=== PATIENT | male | born 1950 | race Caucasian/White ===

== ENCOUNTER 2017-10-18 09:46 | Emergency (ER) | payer OTHER, BC ==
--- NOTE | 2017-10-18 10:07 | PDOC ---
History of Present Illness - General Chief Complaint: Toothache Stated Complaint: DENTAL ABSCESS WITH SWELLING Time Seen by Provider: 10/18/17 09:49 - History of Present Illness Initial Comments: 10/18/17 10:12 67-year-old male with no past medical history here today complaining of right dental abscess. Patient states he was started on Augmentin 2 days ago by his dentist told that he would needed to to extraction. Then was sent to an urgent care where he was seen and subsequent sent to the emergency room. Patient describes pain and swelling in the right jaw area feels like it is extending towards a central area near his throat he does have pain with opening his mouth no fever no chills has had some drainage inside the mouth no recent procedures no diabetes no cough or other problems breathing. Past History - Past Medical History Allergies/Adverse Reactions: Allergies Allergy/AdvReac Type Severity Reaction Status Date / Time cephalexin Allergy Intermediate Hives Verified 10/18/17 09:51 Home Medications: Ambulatory Orders Amoxicillin/Potassium Clav [Augmentin 500-125 Tablet] 1 each PO BID 10/18/17 Ibuprofen 800 mg PO TID PRN 10/18/17 COPD: No - Suicide/Smoking/Psychosocial Hx Smoking History: Former smoker Have you smoked in the past 12 months: No If you are a former smoker, when did you quit?: 20 YEARS AGO Information on smoking cessation initiated: No Hx Alcohol Use: No Drug/Substance Use Hx: No Substance Use Type: None Review of Systems - Review of Systems Constitutional: No: Diaphoresis, Fever HEENTM: Yes: Throat Pain, Mouth Pain, Dental Problems, Difficulty Swallowing, Mouth Swelling Respiratory: No: Cough Cardiac (ROS): No: Chest Pain, Edema ABD/GI: No: Blood Streaked Bowels : No: Burning, Dysuria Integumentary: No: Bruising Neurological: No: Headache All Other Systems: Reviewed and Negative *Physical Exam - Vital Signs Last Vital Signs Temp Pulse Resp BP Pulse Ox 98.0 F 90 16 176/94 97 10/18/17 09:48 10/18/17 09:48 10/18/17 09:48 10/18/17 09:48 10/18/17 09:48 - Physical Exam General Appearance: Yes: Appropriately Dressed HEENT: positive: Normal Voice, Other (Right submandibular swelling palpable mass extending to the midline with fullness mild erythema oral exam demonstrates right buccal swelling tenderness fullness and some purulent drainage dental decay and caries noted along the molar) Neck: positive: Trachea midline Respiratory/Chest: positive: Lungs Clear, Normal Breath Sounds Cardiovascular: positive: Regular Rhythm, Regular Rate, S1, S2. negative: Edema Gastrointestinal/Abdominal: positive: Normal Bowel Sounds, Flat, Soft Musculoskeletal: positive: Normal Inspection. negative: CVA Tenderness ED Treatment Course - LABORATORY CBC & Chemistry Diagram: 10/18/17 10:05 10/18/17 10:05 Medical Decision Making - Medical Decision Making 10/18/17 10:09 67-year-old male with no past medical history here today complaining of right dental abscess. Patient states he was started on Augmentin 2 days ago by his dentist told that he would needed to to extraction. Then was sent to an urgent care where he was seen and subsequent sent to the emergency room. Patient describes pain and swelling in the right jaw area feels like it is extending towards a central area near his throat he does have pain with opening his mouth no fever no chills has had some drainage inside the mouth no recent procedures no diabetes no cough or other problems breathing. On exam he has right submandibular swelling palpable mass and fullness there is some your femur extending to the midline in the submandibular dental decay over the molars is noted with prior fillings no trismus no stridor uvulas midline cardiac exam is normal lungs are normal abdomen is soft nontender extremities are warm well perfused and skin is warm with no rash Patient with dental abscess concern for possible extension into the anterior submandible area concerning for predisposing to Gary's. Will discuss with ENT or consider patient for possible transfer for dental definitive management we will obtain labs with cultures and administer IV antibiotics starting with clindamycin and Decadron to help with the inflammation will obtain CT with contrast to evaluate the extent of the abscess 10/18/17 11:12 Patient's WBC count was 20 given an IV dose of clindamycin 900 mg and Decadron [address] soft tissue of the neck is pending discussed with Dr. sierra at [facility] R for dental surgery who accepted the patient for transfer and drainage also discussed with [facility] ed attending Dr. Lowe . We'll transfer patient for definitive care *DC/Admit/Observation/Transfer Diagnosis at time of Disposition: Dental abscess - Discharge Dispostion Disposition: TRANSFER ACUTE CARE/OTHER HOSP Condition at time of disposition: Good - Referrals Referrals: Zain Shaw MD [Primary Care Provider] - Kelton Reed MD [Staff Physician] - - Patient Instructions - Post Discharge Activity
[2017-10-18] MEDS ORDERED: DEXAMETHASONE SOD PHOSPHATE 10 MG/1 ML VIAL IVPUSH ONE (10:13)
[2017-10-18] MEDS ORDERED: CLINDAMYCIN 900 MG PREMIX IVPB 900 MG/50 ML BAG IVPB ONE (10:13)
[2017-10-18 10:20] VITALS: TEMP 98; BMI 34.8
[2017-10-18] MEDS ORDERED: CLINDAMYCIN PHOSPHATE 300 MG/2 ML VIAL ONE (10:21)
[2017-10-18] MEDS ORDERED: DEXAMETHASONE SOD PHOSPHATE 10 MG/1 ML VIAL ONE (10:21)
[2017-10-18] MEDS ORDERED: CLINDAMYCIN PHOSPHATE 600 MG/4 ML VIAL ONE (10:22)
[2017-10-18 10:26] LABS: MCH 31.4 pg (25.7-33.7); MCHC 34.2 g/dl (32.0-35.9); MEAN CELL VOLUME 91.8 fl (80-96); MEAN PLT VOLUME 9.4 fl (7.5-11.1); PLATELET COUNT 234 K/MM3 (134-434); RDW 12.5 % (11.9-15.9)
[2017-10-18 10:42] LABS: ALK PHOS 84 U/L (32-92); ANION GAP 9 (8-16); BILIRUBIN,TOTAL 1.1 mg/dl (0.2-1.0); CALCIUM 9.4 mg/dl (8.4-10.2); CO2 25 mmol/L (22-28); CREATININE 1.2 mg/dl (0.6-1.3); GLUCOSE,RANDOM 102 mg/dl (74-106); SGOT/AST 25 U/L (10-42); SGPT/ALT 18 U/L (10-40); TOT PROT 7.3 g/dl (6.4-8.3)
[2017-10-18 11:47] VITALS: PULSE 92
[2017-10-18 11:58] VITALS: BP 146/84
== END 2017-10-18 11:53 | disposition short-term general hospital (02) ==
LOC: FER 09:46
PROC: 3E03329 Introduction of Other Anti-infective into Peripheral Vein, Percutaneous Approach (ICD-10-PCS; principal; 2017-10-18)
PROC: 3E033GC Introduction of Other Therapeutic Substance into Peripheral Vein, Percutaneous Approach (ICD-10-PCS; 2017-10-18)
DX: K04.7 Periapical abscess without sinus (principal); Z87.891 Personal history of nicotine dependence
CPT/HCPCS: 36415; 70491-TC; 80053; 85025; 87040; 99285-25

== ENCOUNTER 2019-01-16 09:52 | Observation (INO) | payer OTHER, BC ==
--- NOTE | 2019-01-16 09:55 | PDOC ---
History of Present Illness - General Chief Complaint: Chest Pain Stated Complaint: CHEST PAIN Time Seen by Provider: 01/16/19 09:55 History Source: Patient Exam Limitations: No Limitations - History of Present Illness Initial Comments: 01/16/19 10:13 HPI 68 YOM with h/o chronic sinusitis with no significant medical history presenting with substernal chest pressure/discomfort, with radiation down left arm that woke him up from sleep at 3AM today. He states he was in usual state of health, ate pineapple chicken and rice last night before going to bed. This morning, he started experiencing constant substernal and epigastric chest discomfort, also described as gas pains, and progressed to left arm numbness/ tingling. No alleviating or exacerbating factors. 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 He also took simethicone, without relief. Family history notable for MGF with MN/CAD in early 50s. Denies fever, chills, cough, congestion, palpitations, SOB, headache, dizziness , weakness, N, V, D, abdominal pain, bladder and bowel problems, leg swelling, No sick contacts or travel. No new changes in medications. admits to poor diet, and his dogs eat better than he does. Allergies: Keflex. Past Medical History: chronic sinusitis Social history: Lives with family. Former smoker, No smoking. Occasional alcohol. No illicit drugs. Surgical history: none PMD: Fader ROS Constitutional: no fevers or chills. No weakness HEENT: no headache or dizziness. No congestion. No visual/hearing disturbances. CVS: no syncope. +chest pain, no palpitations Resp: no sob. No cough. Gastrointestinal: no, nausea or vomiting, diarrhea. +abdominal pain. +gas pain. Genitourinary: no urinary sx, hematuria. MUSCULOSKELETAL: No joint pain and swelling. No neck or back pain. SKIN: no redness or skin changes, no discharge, no rash. No wounds. Hematologic: no easy bruising/bleeding. NEUROLOGIC: No headache, dizziness, LOC or altered mental status. No weakness, + numbness and tingling in arm Allergic/Immunologic: no allergies All other systems reviewed and negative, or as documented in HPI. PE: General: awake and alert, NAD. HEENT: NCAT, PERRL, EOMI, clear conjunctiva, anicteric, moist mucus membranes, clear oropharynx, no oral lesions.. Neck: neck supple, FROM Resp: CTAB, normal and even respirations, no respiratory distress CVS: RRR, no murmurs, 2+ peripheral pulses throughout, no peripheral edema Chest: no reproducible chest wall tenderness Abdomen: soft, NTND, no peritoneal signs. Back: nontender, normal inspection and ROM MSK: no edema, OLIVEIRA x4, ROM intact. No clubbing or cyanosis. normal bulk and tone. Extremities: no calf tenderness Neuro: alert, oriented appropriately; no focal neurologic deficits Skin: warm and well perfused, cap refill <2 sec, normal color 01/16/19 10:22 01/16/19 10:22 01/16/19 10:23 Past History - Past Medical History Allergies/Adverse Reactions: Allergies Allergy/AdvReac Type Severity Reaction Status Date / Time cephalexin Allergy Intermediate Hives Verified 01/16/19 09:53 Home Medications: Ambulatory Orders Aspirin Coated [Ecotrin -] 650 mg PO ONCE 01/16/19 COPD: No - Suicide/Smoking/Psychosocial Hx Smoking History: Never smoked Have you smoked in the past 12 months: No If you are a former smoker, when did you quit?: 20 YEARS AGO Information on smoking cessation initiated: No Hx Alcohol Use: (occasional) Drug/Substance Use Hx: No Substance Use Type: None *Physical Exam - Vital Signs Last Vital Signs Temp Pulse Resp BP Pulse Ox 97.5 F L 64 16 144/82 99 01/16/19 09:52 01/16/19 11:00 01/16/19 11:00 01/16/19 11:00 01/16/19 11:00 Heart Score/ECG Review - History History: Moderately suspicious - Electrocardiogram EKG: Non specific repolarization disturbance - Age Age: >/= 65 - Risk Factors Risk Factors Heart Score: Yes Hx Obesity Based on the list above the patient has:: 1-2 risk factors - Troponin Troponin: </= normal limit - Score Heart Score - Total: 5 #1 ECG reviewed & interpreted by me at: 09:55 General ECG Interpretation: Sinus Rhythm Compared to previous ECG there are: Previous ECG unavail 01/16/19 10:16 EKG normal sinus rhythm at 90 bpm, no interval abnormalities, narrow QRS, ST and T wave segments and morphology normal. Nonspecific T wave abnormalities - TWI in III only. no priors. Moderate Sedation - Procedure Monitoring Vital Signs: Procedure Monitoring Vital Signs Temperature 97.5 F L 01/16/19 09:52 Pulse Rate 64 01/16/19 11:00 Respiratory Rate 16 01/16/19 11:00 Blood Pressure 144/82 01/16/19 11:00 O2 Sat by Pulse Oximetry (%) 99 01/16/19 11:00 ED Treatment Course - LABORATORY CBC & Chemistry Diagram: 01/16/19 10:14 01/16/19 10:14 - ADDITIONAL ORDERS Additional order review: Laboratory Results 01/16/19 01/16/19 10:14 10:14 Sodium 136 Potassium 4.2 Chloride 103 Carbon Dioxide 25 Anion Gap 8 BUN 18 Creatinine 1.2 Creat Clearance w eGFR 60.39 Random Glucose 113 H Calcium 9.1 Magnesium 1.8 Total Bilirubin 0.5 AST 23 ALT 24 Alkaline Phosphatase 109 Troponin I < 0.03 Total Protein 6.9 Albumin 3.8 01/16/19 10:14 RBC 5.02 MCV 92.1 MCHC 32.6 RDW 11.9 MPV 8.7 D Neutrophils % 63.3 Lymphocytes % 22.8 Monocytes % 6.6 Eosinophils % 6.6 H D Basophils % 0.7 - RADIOLOGY Radiology Studies Ordered: Category Date Time Status CHEST PA & LAT [RAD] Stat Radiology 01/16/19 09:55 Completed Medical Decision Making - Medical Decision Making 01/16/19 09:56 See HPI for details Vital signs reviewed, mildly hypertensive DDx includes ACS, angina, chest pain NOS, costochondritis, GERD, pleurisy, anxiety, esophageal spasm. Low suspicion for pulmonary embolism or dissection. Prior notes reviewed, including admissions, discharges and consultations. - prior echo in 2018 with LVH, normal EF noted; otherwise unremarkable. laboratory results and imaging reviewed, basic labs and lytes wnl, CXR_no acute chest pathology Cardiac panel_neg trop x1, serial trop/EKG EKG normal sinus rhythm at 90 bpm, no interval abnormalities, narrow QRS, ST and T wave segments and morphology normal. Nonspecific T wave abnormalities - TWI in III only. no priors. ED course -HEART score 5 which denotes mod risk and probability for ACS, less than 14-16% risk for MACE at 30 days. Given risk factors including obesity, gender, family (MGF) and former tobacco use. - htn noted, downtrending, clinical recheck. - ACS workup, pt with currently mild midsternal chest "burning" sensation. will trial GI cocktail as well, no significant cp. however, still with paresthesias from LUE, without neck pain elicited. Plan for admit observation telemetry, r/o ACS vs stable /unstable angina, serial trops and EKG/tele monitoring. 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 s/o [place], with admission, to hospitalist service. 01/16/19 11:49 01/16/19 11:51 *DC/Admit/Observation/Transfer Diagnosis at time of Disposition: Chest pain - Discharge Dispostion Condition at time of disposition: Stable Decision to Admit order: Yes Decision to Admit order Date/Time: Decision to Admit Order Category Date Time Status Decision to Admit to Hospital Routine Admission 01/16/19 11:46 Ordered - Referrals Referrals: Zain Shaw MD [Primary Care Provider] - - Patient Instructions - Post Discharge Activity
[2019-01-16 10:26] LABS: BASO % 0.7 % (0-2.0); EOS % 6.6 % (0-4.5); HEMATOCRIT 46.3 % (35.4-49); HEMOGLOBIN 15.1 GM/dl (11.7-16.9); LYMPH % 22.8 % (8-40); MCHC 32.6 g/dl (32.0-35.9); MEAN CELL VOLUME 92.1 fl (80-96); MEAN PLT VOLUME 8.7 fl (7.5-11.1); MONO % 6.6 % (3.8-10.2); NEUT % 63.3 % (42.8-82.8); PLATELET COUNT 245 K/MM3 (134-434); RBC 5.02 M/mm3 (4.00-5.60); RDW 11.9 % (11.9-15.9); WHITE BLOOD COUNT 12.6 K/mm3 (4.0-10.8)
[2019-01-16 10:39] LABS: ALBUMIN 3.8 g/dl (3.4-5.0); ALK PHOS 109 U/L (45-117); ANION GAP 8 MMOL/L (8-16); BILIRUBIN,TOTAL 0.5 mg/dl (0.2-1); BLOOD UREA NITROGEN 18 mg/dl (7-18); CALCIUM 9.1 mg/dl (8.5-10); CHLORIDE 103 mmol/L (98-107); CO2 25 mmol/L (21-32); CREATININE 1.2 mg/dl (0.55-1.3); GLUCOSE,RANDOM 113 mg/dl (74-106); MAGNESIUM 1.8 mg/dL (1.8-2.4); POTASSIUM 4.2 mmol/L (3.5-5.1); SGOT/AST 23 U/L (15-37); SGPT/ALT 24 U/L (13-61); SODIUM 136 mmol/L (136-145); TOT PROT 6.9 g/dl (6.4-8.2)
--- NOTE | 2019-01-16 10:59 | EKG ---
Test Reason : Blood Pressure : / mmHG Vent. Rate : 090 BPM Atrial Rate : 090 BPM P-R Int : 216 ms QRS Dur : 086 ms QT Int : 354 ms P-R-T Axes : 058 -13 010 degrees QTc Int : 433 ms SINUS RHYTHM WITH 1ST DEGREE A-V BLOCK INFERIOR INFARCT , AGE UNDETERMINED ABNORMAL ECG NO PREVIOUS ECGS AVAILABLE Confirmed by MD JESSI, AMANDA ([id number]) on 01/16/2019 10:58:39 AM Referred By: SUSAN Confirmed By:AMANDA BOWEN MD
[2019-01-16] MEDS ORDERED: FAMOTIDINE 20 MG/50 ML IVPB 20 MG/50 ML MG IVPB ONE ×2 (11:52→11:55)
[2019-01-16] MEDS ORDERED: MAG HYDROX/AL HYDROX/SIMETH 30 ML UNIT-DOSE CUP PO ONE (11:52)
[2019-01-16] MEDS ORDERED: MAG HYDROX/AL HYDROX/SIMETH 30 ML UNIT-DOSE CUP ONE (11:55)
--- NOTE | 2019-01-16 12:25 | HP ---
CHIEF COMPLAINT: MS chest and left arm pain PCP: Dr. Shaw HISTORY OF PRESENT ILLNESS: This is a 68 year old male with a primary history significant for chronic sinusitis and obesity,who presents to ER complaining of MS chest pressure and left arm pain,numbness and tingling sensation. Pt reports was in a [employer] and had pineapple chicken and rice for dinner. Pt states woke up around 3AM with MS chest pressure, denies sob, palpations, diaphoresis, nausea or vomiting but reports Pain improved after burping. This morning, he started experiencing left arm pain,numbness and tingling sensation and persistent MS chest discomfort. Denies sob, palpitations, diaphoresis,headache, dizziness, weakness, abdominal pain, or urinary symptoms. Reports took two regular ASA without relief. In ER, Pt received Mylanta and Pepcid with relief. ER course was notable for: (1)CxR: No acute pathology (2) EKG: SR with first degree AVB,Nonspecific T wave abnormalities in lead III (3) BP 182/98 Recent Travel:No PAST MEDICAL HISTORY: chronic sinusitis PAST SURGICAL HISTORY: Social History: Smoking:No Alcohol: occasional beer use Drugs: No Family History: Mother - CHF- at age 95 Father - Lung CA -ied at age 89 Brother - ND/ obesity Sister - obesity/ alcoholic Allergies cephalexin Allergy (Intermediate, Verified 01/16/19 09:53) Hives HOME MEDICATIONS: Home Medications Medication Instructions Recorded Aspirin Coated [Ecotrin -] 650 mg PO ONCE 01/16/19 REVIEW OF SYSTEMS CONSTITUTIONAL: Absent: fever, chills, diaphoresis, generalized weakness, malaise, loss of appetite, weight change HEENT: Absent: rhinorrhea, nasal congestion, throat pain, throat swelling, difficulty swallowing, mouth swelling, ear pain, eye pain, visual changes CARDIOVASCULAR: Absent: chest pain, syncope, palpitations, irregular heart rate, lightheadedness , peripheral edema RESPIRATORY: Absent: cough, shortness of breath, dyspnea with exertion, orthopnea, wheezing, stridor, hemoptysis GASTROINTESTINAL: Absent: abdominal pain, abdominal distension, nausea, vomiting, diarrhea, constipation, melena, hematochezia GENITOURINARY: Absent: dysuria, frequency, urgency, hesitancy, hematuria, flank pain, genital pain MUSCULOSKELETAL: Absent: myalgia, arthralgia, joint swelling, back pain, neck pain SKIN: Absent: rash, itching, pallor HEMATOLOGIC/IMMUNOLOGIC: Absent: easy bleeding, easy bruising, lymphadenopathy, frequent infections ENDOCRINE: Absent: unexplained weight gain, unexplained weight loss, heat intolerance, cold intolerance NEUROLOGIC: Absent: headache, focal weakness or paresthesias, dizziness, unsteady gait, seizure, mental status changes, bladder or bowel incontinence PSYCHIATRIC: Absent: anxiety, depression, suicidal or homicidal ideation, hallucinations. PHYSICAL EXAMINATION Vital Signs - 24 hr 01/16/19 01/16/19 01/16/19 09:52 11:00 12:10 Temperature 97.5 F L 97.6 F Pulse Rate 98 H Pulse Rate [ 64 71 Left Apical] Respiratory 18 16 16 Rate Blood Pressure 182/98 H Blood Pressure 144/82 145/82 [Left Arm] O2 Sat by Pulse 100 99 99 Oximetry (%) GENERAL: Awake, alert, and fully oriented, in no acute distress. HEAD: Normal with no signs of trauma. EYES: Pupils equal, round and reactive to light, extraocular movements intact, sclera anicteric, conjunctiva clear. No lid lag. EARS, NOSE, THROAT: Ears normal, nares patent, oropharynx clear without exudates. Moist mucous membranes. NECK: Normal range of motion, supple without lymphadenopathy, JVD, or masses. LUNGS: Breath sounds equal, clear to auscultation bilaterally. No wheezes, and no crackles. No accessory muscle use. HEART: Regular rate and rhythm, normal S1 and S2 without murmur, rub or gallop. ABDOMEN: Soft, nontender, not distended, normoactive bowel sounds, no guarding, no rebound, no masses. No hepatomegaly or splenomegaly. MUSCULOSKELETAL: Normal range of motion at all joints. No bony deformities or tenderness. No CVA tenderness. UPPER EXTREMITIES: 2+ pulses, warm, well-perfused. No cyanosis. No clubbing. No peripheral edema. LOWER EXTREMITIES: 2+ pulses, warm, well-perfused. No calf tenderness. No peripheral edema. NEUROLOGICAL: Cranial nerves II-XII intact. Normal speech. Normal gait. PSYCHIATRIC: Cooperative. Good eye contact. Appropriate mood and affect. SKIN: Warm, dry, normal turgor, no rashes or lesions noted, normal capillary refill. Laboratory Results - last 24 hr 01/16/19 01/16/19 01/16/19 10:14 10:14 10:14 WBC 12.6 H RBC 5.02 Hgb 15.1 Hct 46.3 MCV 92.1 MCH 30.0 MCHC 32.6 RDW 11.9 Plt Count 245 MPV 8.7 D Absolute Neuts (auto) 8.0 Neutrophils % 63.3 Lymphocytes % 22.8 Monocytes % 6.6 Eosinophils % 6.6 H D Basophils % 0.7 Sodium 136 Potassium 4.2 Chloride 103 Carbon Dioxide 25 Anion Gap 8 BUN 18 Creatinine 1.2 Creat Clearance w eGFR 60.39 Random Glucose 113 H Calcium 9.1 Magnesium 1.8 Total Bilirubin 0.5 AST 23 ALT 24 Alkaline Phosphatase 109 Troponin I < 0.03 Total Protein 6.9 Albumin 3.8 ASSESSMENT/PLAN: This is a 68 year old male presents with MS chest and left arm pain. *Chest pain r/o ACS,?GERD - serial cardiac enzymes,Trop negx1, - tele monitoring - will check fasting lipids - TSH- WNL - stress test in AM - NPO after MN - started on Pepcid - Echo 12/2017: Normal EF 60-65%, grade 1 diastolic CHF - started on ASA * Elevated BP in ER - stable now, no hx of HTN * Obesity - weight loss * VTE: Low risk, fully ambulatory. * F/E/N: Heart Healthy Diet Visit type - Emergency Visit Emergency Visit: Yes ED Registration Date: 01/16/19 Care time: The patient presented to the Emergency Department on the above date and was hospitalized for further evaluation of their emergent condition. - New Patient This patient is new to me today: Yes Date on this admission: 01/16/19 - Critical Care Critical Care patient: No
[2019-01-16 13:13] VITALS: BMI 37.5
[2019-01-16 18:20] LABS: URINE APPEARANCE CLEAR; URINE BILIRUBIN NEGATIVE (NEGATIVE); URINE COLOR YELLOW; URINE GLUCOSE (UA) NEGATIVE (NEGATIVE); URINE KETONE NEGATIVE (NEGATIVE)
[2019-01-16 18:21] LABS: URINE LEUK ESTERASE NEGATIVE (NEGATIVE); URINE NITRITE NEGATIVE (NEGATIVE); URINE PROTEIN NEGATIVE (NEGATIVE); URINE UROBILINOGEN 0.2 (0.2-1.0)
[2019-01-16 19:08] VITALS: PULSE 64
[2019-01-16] MEDS ORDERED: FAMOTIDINE 20 MG TABLET PO SCH (22:00)
[2019-01-17 06:20] VITALS: BP 145/68; TEMP 97.8
[2019-01-17] MEDS ORDERED: ASPIRIN 81 MG CHEWABLE TABLETS PO SCH (10:00)
--- NOTE | 2019-01-17 10:47 | DS ---
Physical Exam: HOSPITAL COURSE: Date of Admission:01/16/19 Date of Departure Against Medical Advice: 01/17/19 A review of the EMR indicates this patient left against medical advice at 7: 00am this morning. I did not see or evaluate this patient. I did not enter any orders with respect to this patient. Minutes to complete discharge: 10 Discharge Summary Reason For Visit: CHEST PAIN Current Active Problems Chest pain (Acute) Condition: Unchanged/Unknown - Instructions Disposition: AGAINST MEDICAL ADVICE - Home Medications Comprehensive Discharge Medication List: Ambulatory Orders Aspirin Coated [Ecotrin -] 650 mg PO ONCE 01/16/19 This patient is new to me today: Yes Date on this admission: 01/17/19 Emergency Visit: Yes ED Registration Date: 01/16/19 Care time: The patient presented to the Emergency Department on the above date and was hospitalized for further evaluation of their emergent condition. Critical Care patient: No - Discharge Referral [facility]erred to [facility] Med P.C[facility] No
== END 2019-01-17 07:15 | disposition left against medical advice (07) ==
LOC: FER 09:52 → FM/S 11:46
PROVIDERS: ADMIT Internal Medicine; ATTEND Nurse Practitioner Acute Care
PROC: 3E033GC Introduction of Other Therapeutic Substance into Peripheral Vein, Percutaneous Approach (ICD-10-PCS; principal; 2019-01-16)
DX: R07.9 Chest pain, unspecified (principal); D72.829 Elevated white blood cell count, unspecified; E66.9 Obesity, unspecified; Z68.37 Body mass index [BMI] 37.0-37.9, adult; R03.0 Elevated blood-pressure reading, without diagnosis of hypertension
CPT/HCPCS: 36415; 71046-TC-FY; 80053; 81003; 83735; 84484; 85025; 93005; 96365; 99285-25; G0378